=== PATIENT | female | born 1990 | race Caucasian/White ===

== ENCOUNTER → 2022-06-12 13:54 | Outpatient (CLI) | payer OTHER, SELFPAY ==
[2022-06-12 14:54] LABS: COVID19 -Nasal RAPID Negative (Negative)
== END ==
PROVIDERS: PCP Student in an Organized Health Care Education/Training Program; Visit Provider Obstetrics & Gynecology
DX: Z20.822 Contact with and (suspected) exposure to COVID-19 (principal)
CPT/HCPCS: 87635

== ENCOUNTER 2022-06-13 10:05 | Day surgery (SDC) | payer OTHER, SELFPAY ==
[2022-06-11 13:32] VITALS: BMI 28.0
--- NOTE | 2022-06-13 | PATH_ITS ---
[facility] Accession Number: [id number] . 01 Material submitted: . fallopian tube - BILATERAL FALLOPIAN TUBES . 01 Clinical history: . [facility] [place] ENCOUNTER FOR STERILIZATION . 01 Diagnosis: Bilateral Fallopian Tubes: Complete cross-sections of segments of fallopian tube x2; negative for atypia or malignancy. MRV 06/18/2022 1058 Local . 01 Electronically signed: . Daisy Rosales MD, Pathologist NPI- [id number] . 01 Gross description: . The specimen is received in formalin, labeled with the patient's name and bilateral fallopian tubes, and consists of two unoriented, fimbriated fallopian tubes measuring 3.5 x 0.8 cm and 3.9 x 0.5 cm, respectively. The longer fallopian tube has congested smooth serosa with no cystic structures identified. Sectioning reveals an unremarkable stellate lumen. The shorter fallopian tube has congested smooth serosa with no cystic structures identified. Sectioning reveals an unremarkable stellate lumen. Metal Inspector sections to include entire bisected fimbriae and cross sections are submitted as follows: A1: Longer fallopian tube. A2: [place] fallopian tube. ([id number]) /FRR 06/15/2022 1551 Local . 01 Pathologist provided ICD-10: Z30.2 . 01 CPT . 269043 Performed at: [facility] [address] [place] [address], [place], [place] [id number] MD Sy Hurtado MD Phone: [phone]
[2022-06-13 10:21] VITALS: BP 126/72; PULSE 57; RESP 16; TEMP 36.9; O2SAT 97; BMI 28.0
[2022-06-13] MEDS: LACTATED RINGERS 1,000 ML 42 ML IV (10:31)
--- NOTE | 2022-06-13 11:34 | SUR.OPER ---
Lithotomy on padded OR bed, head on pillow, arms secured on padded arm boards at <90 degrees abduction. Legs secured in padded yellow fins stirrups.
--- NOTE | 2022-06-13 11:58 | PM.PREOP ---
Pre-operative Note COVID-19 COVID-19 status: Negative Result date/Date tested (Pos, Neg/Pending): 06/12/22 Interval Note History & Physical reviewed/Exam performed by Physician: Yes Changes to H&P: No H&P completed within 30 days and has changed as indicated here:: urine test negative today
[2022-06-13] MEDS: BUPIVACAINE 0.5% W/ EPI (PF) 30 ML VIAL INJ (13:08)
[2022-06-13 13:55] VITALS: BP 134/80; PULSE 90; RESP 22; TEMP 36.7; O2SAT 99
[2022-06-13] MEDS: KETOROLAC 30 MG/ML VIAL IV (13:55)
[2022-06-13 13:58] VITALS: BP 138/78; PULSE 78; RESP 18; O2SAT 96
[2022-06-13 14:03] VITALS: BP 142/77; PULSE 77; RESP 18; O2SAT 100
[2022-06-13 14:16] VITALS: BP 140/89; PULSE 64; RESP 18; TEMP 36.4; O2SAT 100
[2022-06-13 14:47] VITALS: BP 139/84; PULSE 68; RESP 16; TEMP 36.2; O2SAT 100
--- NOTE | 2022-06-14 12:36 | P.OP_ITS ---
Operative Date/Time/Diagnoses Date of procedure: 06/13/22 Time of procedure: 12:30 Pre-op diagnosis: desires sterilization by way of bilateral salpingectomy Post-op diagnosis: same Procedure & Clinicians Procedure: laparoscopic bilateral salpingectomy Same procedure as scheduled: Yes Indications: Desires sterilization. Options reviewed regarding tubal interruption with tubal ligation versus bilateral salpingectomy, with risks and benefits of each reviewed. She desired bilateral salpingectomy, understanding that this method is irreversible. Surgeon: Eryn Pop Click Yes if Unassisted: Yes Anesthesia Type: General Operative Notes Findings: On bimanual examination uterus was noted to be retroverted. With placement of the intrauterine manipulator, uterine cavity confirmed to be retroverted. On laparoscopy, normal appearance of abdomen and pelvis. No abdominal or pelvic adhesions. Uterus was normal in shape, size and appearance. Ovaries were normal bilaterally. Fallopian tubes were normal bilaterally. There was no noted endometriosis upon inspection of the anterior and posterior cul-de-sac, and bilateral pelvic sidewalls. Closure Type: primary Specimen(s): other ( Left and right fallopian tubes) Estimated Blood Loss (mL): 3 Blood products transfused: none Procedure in detail: After being properly identified she was taken to operating room. After an adequate level of general anesthesia was obtained, she was placed in Nate stirrups in the dorsal lithotomy position And prepped and draped in routine sterile fashion. She had just voided prior to the procedure and bladder was not drained. Time-out was taken the patient procedure was identified. Bimanual examination was performed. An open-sided Graves speculum was placed. The anterior cervix was grasped with a ring forceps. The uterus was sounded to 7 cm. A ZUMI intrauterine manipulator was placed without difficulty and the balloon was insufflated. The ring forcep in speculum was removed. Attention was placed abdominally where after injection of approximately 2 mL of local anesthesia, small vertical infraumbilical incision was made. Her abdomen was elevated and a Veress needle was placed. Drop test performed which appeared to confirm intraperitoneal placement. The CO2 gas was connected. Initial opening pressure indicating probable preperitoneal placement and the Veress needle was removed. The Veress needle was placed a 2nd time, and drop test again performed. CO2 gas was then connected and the opening pressure was low. The abdomen was insufflated with CO2 gas. The Veress needle removed moved and a 5 mm Visiport trocar was placed under direct visualization without difficulty. Inferior to the trocar site was inspected and appeared atraumatic. The abdomen and pelvis was without adhesions. The uterus was noted to be mobile with elevation with the intrauterine manipulator. At this time 2 secondary 5mm ports were placed after injection of local anesthesia. Incisions were made and one port was placed in the right lower abdomen and 1 port was placed suprapubically. She was placed in Trendelenburg position. A blunt probe was used and the bowel was pushed back away from the uterus,the uterus was elevated, and the pelvis was inspected with the above normal findings. Attention was then placed to the fallopian tubes for salpingectomy. An atraumatic grasper was placed and attention was 1st placed to left fallopian tube which was grasped at the fimbriated end and elevated. The Power seal device was used and starting at the fimbriated end, the mesosalpinx just inferior to the fallopian to was co agulated and excised. This was continued to about 1 cm from the left cornua. The Power seal was then used to come across the fallopian tube near the cornua and excise it. The left fallopian tube was then removed and handed off as specimen. There was good hemostasis noted along the mesosalpinx. Attention was then placed to the right fallopian tube which in similar fashion was elevated at the fimbriated end and the power seal was used to excise the mesosalpinx inferior to the fallopian to, carrying this to about 1.5 cm from the uterine cornua. The power seal device was then used to come across, coagulate and excise the fallopian tube near the cornua and the tube was freed. The right fallopian tube was removed and handed off the specimen to be sent with the fallopian tube. Good hemostasis was noted along the excision site and both adnexa and through the pelvis. The procedure was then ended. The CO2 gas was allowed to escape from the abdomen and good hemostasis was noted to continue. The CO2 gas was further pushed out of the abdomen and the ports were removed. The incisions were closed with subcuticular suture of 4 0 Monocryl. Steri-Strips and sterile dressings were placed. The intrauterine manipulator was removed. Speculum was placed. There was noted to be some light bleeding along the posterior cervical os which persisted after pressure. Silver nitrate was placed and hemostasis obtained. The procedure was ended. Sponge needle and instrument counts were correct. She tolerated the procedure well and was transferred to the recovery room in stable condition. Complications: none Post-operative Condition: stable Disposition: PACU Plan for aftercare: Discharge home after postop recovery, with follow-up postoperative appointment.
== END 2022-06-13 14:48 | disposition home or self-care (01) ==
PROVIDERS: PCP Student in an Organized Health Care Education/Training Program; Referring Provider Obstetrics & Gynecology; Visit Provider Obstetrics & Gynecology
PROC: 0UT74ZZ Resection of Bilateral Fallopian Tubes, Percutaneous Endoscopic Approach (ICD-10-PCS; CPT 58661; principal; 2022-06-13 11:45)
DX: Z30.2 Encounter for sterilization (principal); F41.9 Anxiety disorder, unspecified; F32.A Depression, unspecified; F90.9 Attention-deficit hyperactivity disorder, unspecified type
CPT/HCPCS: 58661; J1100; J1885; J2250; J2405; J3010